=== PATIENT | male | born 1990 | race Caucasian/White ===

== ENCOUNTER 2017-09-07 21:48 | Inpatient (IN) | payer BC, SELFPAY ==
[2017-09-07 23:13] LABS: #Eosinphils 0.1 thou/uL (0.0-0.7); #Lymphocytes 1.6 thou/uL (1.20-3.40); #Monocytes 0.7 thou/uL (0.11-0.59); #Neutrophils 8.4 thou/uL (1.40-6.50); %Basophils 0.2 % (0.0-1.0); %Eosinophils 0.5 % (0.0-10.0); %Lymphocytes 14.9 % (21.0-51.0); %Monocytes 6.9 % (0.0-10.0); %Neutrophils 77.5 % (42.0-75.0); Hemoglobin 15.3 g/dL (12.0-16.0); Mean Corpuscular HGB CONC 34.6 g/dL (32.0-36.0); Mean Corpuscular Hemoglobin 31.4 pg (27.0-31.0); Mean Corpuscular Volume 90.8 fl (81.0-99.0); Mean Platelet Volume 7.1 fL (7.4-10.4); Platelet Count 157 thou/uL (130-400); RBC Distribution Width 11.6 % (11.5-14.5); Red Blood Cell (RBC) Count 4.87 mill/uL (4.20-5.40); White Blood Cell (WBC) Count 10.8 thou/uL (4.8-10.8)
[2017-09-07 23:20] LABS: PTT 29.8 SEC (22.9-36.1); Prothrombin Time 13.8 SEC (12.0-14.7)
--- NOTE | 2017-09-08 03:23 | HP ---
DATE OF ADMISSION: 09/08/2017 ADMITTING PHYSICIAN: Dr. Rell Starr. HISTORY OF PRESENT ILLNESS: A 26-year-old male who was unloading a horse from a trailer about 8:30 a.m. on 09/07/2017 when the horse kicked him in the abdomen. He reports that he was thrown about 10 feet backward. He had no LOC. He was able to get up on his own and ambulate to the house. He then had something to eat for breakfast. Over the course of the day, his abdomen became more tender. He presented to [facility] at approximately 3:[address] at that facility showed a contusion involving the right lower quadrant anterior abdominal wall as well as the right lower quadrant mesentery with mild hemoperitoneum. Report reads, there is no overt evidence of solid organ laceration or area of active arterial extravasation. He was then transferred to [facility] for higher level of care. He has been hemodynamically stable and neurovascularly intact. Pain is made worse by palpation. Pain was relieved with morphine at outside facility. He denies any nausea, vomiting, diarrhea, or constipation. He denies any other system injury. Pain is currently rated as 2-3/10. Trauma service has been consulted for admission and management. PAST MEDICAL HISTORY: None. SOCIAL HISTORY: Tobacco, 1 pack of cigarettes per day. ETOH 5 to 6 beers twice monthly. Drugs: None. FAMILY HISTORY: Noncontributory. ALLERGIES: No known drug allergies. CURRENT MEDICATIONS: None. LABORATORY DATA: WBC 10.8, hemoglobin 15.3, hematocrit 44.2, platelets 157. Sodium 137, potassium 4.2, creatinine 1.2, total bilirubin 0.6. REVIEW OF SYSTEMS: Except as documented above in HPI, review of systems is negative. PHYSICAL EXAMINATION: CONSTITUTIONAL/VITAL SIGNS: Blood pressure 110/83, pulse 92, respirations 16, pain 4/10, O2 sat 96% room air. GENERAL: A 26-year-old male, well-developed, well-nourished, no acute distress. HEENT: Atraumatic, normocephalic. PULMONARY: Respirations even unlabored. Bilateral breath sounds clear. CARDIOVASCULAR: Regular rate and rhythm. Heart sounds normal. ABDOMEN: Diffusely tender abdomen, greater in right lower quadrant. Mild guarding right lower quadrant. No rebound. Pelvis stable. EXTREMITIES: Moves all extremities well. Neurovascularly intact. NEUROLOGIC: GCS 15. A&O x3. Sensation intact. ASSESSMENT AND PLAN: 1. A 26-year-old male status post blunt abdominal trauma, kicked by a horse in abdomen. 2. Hemoperitoneum, no evidence of solid organ injury on CT scan. 3. Hemodynamically stable. PLAN: 1. Admit to IMCU. 2. Serial abdominal exams. 3. Serial H&H. Transfuse as indicated. 4. N.p.o. IV fluids. 5. IV analgesia. Patient was discussed with Dr. Starr, attending trauma surgeon. BRIAN
[2017-09-08] MEDS ORDERED: Morphine 4 MG/ML VIAL SLOW IVP PRN ×2 (04:31)
[2017-09-08] MEDS ORDERED: Ondansetron HCl/PF 4 MG/2 ML Vial IVP PRN (04:31)
[2017-09-08] MEDS ORDERED: Dextrose 5% in Water 1,000 ML IV PRN (04:31)
[2017-09-08] MEDS ORDERED: Sodium Chloride 0.9% 1,000 ML IV SCH (04:31)
[2017-09-08] MEDS ORDERED: Dextrose 50% Abboject 50 ML SYRINGE SLOW IVP PRN (04:31)
[2017-09-08 04:55] LABS: Hemoglobin 14.5 g/dL (14.0-18.0)
[2017-09-08] MEDS ORDERED: Metoclopramide HCl 10 MG/2 ML VIAL ONE (07:55)
[2017-09-08] MEDS ORDERED: Ketorolac Tromethamine 30 MG/ML VIAL ONE (07:55)
[2017-09-08] MEDS ORDERED: Acetaminophen 1,000 MG in Premix Bag 1 BAG IVPB SCH ×2 (08:00→15:00)
[2017-09-08] MEDS ORDERED: Ketorolac Tromethamine 30 MG/ML VIAL IVP SCH ×2 (08:00→15:00)
[2017-09-08] MEDS ORDERED: Metoclopramide HCl 10 MG/2 ML VIAL IVP SCH (08:00)
[2017-09-08] MEDS ORDERED: Famotidine/PF 20 mg/2ml Vial SLOW IVP SCH (09:00)
[2017-09-08] MEDS ORDERED: Famotidine/PF 20 mg/2ml Vial ONE (10:13)
--- NOTE | 2017-09-08 10:13 | CT ---
CT ABDOMEN AND PELVIS WITH IV AND ORAL CONTRASTS: History: Abdominal hemorrhage from recent injury. Kicked by a horse. Comparison: [facility] exam from 09-07-17. FINDINGS: The lung bases are clear. The liver, spleen, kidneys, adrenal glands, and pancreas are intact. Incomp lete rotation of the right kidney is apparent. Small amount of free fluid within the dependent portion of the pelvis is less than on the previous ex am. There is subtle stranding within the right lower quadrant fat, primarily surrounding the cecum. T his is similar in appearance to the previous study. No free air is evident. Appendix is within normal limits. Hyperdense material within the gallbladder lumen is likely related to the previous day's CT exam with IV contrast. IMPRESSION: Slight interval decrease in amount of free abdominal fluid associated with the right lower quadrant m esenteric injury. Findings are otherwise stable. POS: JUDITH
[2017-09-08] MEDS ORDERED: traMADol HCl 50 MG TAB PO PRN ×2 (10:26)
--- NOTE | 2017-09-08 11:19 | HP ---
HISTORY OF PRESENT ILLNESS: Feliciano Cortés is a 26-year-old male from [place] in the [place] area for an endurance horse ride event. He was kicked in the right abdomen by his horse. This happ ened about 2:00 yesterday afternoon and about 2:00 this morning, he presented to the [facility], hemodynamically stable with increased pain. CAT scan of abdomen and pelvis obtained reveal ing some bloody fluid in his abdominal cavity, suggesting of mesenteric injury. Patient was transfer red to [facility] and monitored. His hemoglobin has remained stable at 14.5 this morning 04 00 and white count normal. His pain is not worsen. His vital signs remain stable with normal heart rate and respiratory rate. ALLERGIES: None. TOBACCO: One-half to one pack per day. ALCOHOL: Occasionally. MEDICATIONS: None routinely. PAST SURGICAL HISTORY: Noncontributory. PAST MEDICAL HISTORY: Noncontributory. PAST MEDICAL HISTORY: VITAL SIGNS: 102/60, 92, 16, 98.5 degrees. HEAD, EARS, EYES, NOSE AND THROAT: Unremarkable. LUNGS: Clear to auscultation. CARDIAC: Regular rate and rhythm without murmur or gallop. ABDOMEN: Nondistended. He has tenderness in his right lower quadrant with guarding at the area wher e there is a contusion by CAT scan. The remainder of his abdomen left upper quadrant, right upper qu adrant, left lower quadrant have tenderness, but not rigidity. EXTREMITIES: Unremarkable. ASSESSMENT AND PLAN: Horse trauma, contusion, abdominal wall. There was some free intraabdominal bl ood, which may be consistent with hematoma. Hemodynamically, he remained stable and his pain is not worsening and I do not think he has a bowel injury, I think he can be observed. I would, however, re peat his CAT scan of the abdomen and pelvis with p.o. and IV contrast this morning to get a better lo ok at this. He will need to be monitored for 24-48 hours with repeat CBC in the morning.
[2017-09-08 14:05] VITALS: BMI 23.6
[2017-09-08] MEDS: Ibuprofen 800 MG TAB PO SCH ×2 (14:11→18:13)
[2017-09-08] MEDS: Acetaminophen 500 MG TAB PO SCH ×3 (14:11→23:09)
[2017-09-08] MEDS ORDERED: FLU VACC QS2017-18 36 mo. & older 0.5 ML SYRINGE IM ONE (16:45)
[2017-09-09] MEDS: Acetaminophen 500 MG TAB PO SCH ×2 (03:40→10:36)
[2017-09-09] MEDS: Ibuprofen 800 MG TAB PO SCH ×2 (03:40→10:36)
[2017-09-09 04:58] LABS: #Eosinphils 0.2 thou/uL (0.0-0.7); #Lymphocytes 1.7 thou/uL (1.20-3.40); #Monocytes 0.5 thou/uL (0.11-0.59); #Neutrophils 2.6 thou/uL (1.40-6.50); %Basophils 0.7 % (0.0-1.0); %Eosinophils 3.8 % (0.0-10.0); %Lymphocytes 33.3 % (21.0-51.0); %Monocytes 10.7 % (0.0-10.0); %Neutrophils 51.4 % (42.0-75.0); Hemoglobin 12.8 g/dL (14.0-18.0); Mean Corpuscular HGB CONC 34.2 g/dL (32.0-36.0); Mean Corpuscular Hemoglobin 31.6 pg (27.0-31.0); Mean Corpuscular Volume 92.3 fl (80.0-94.0); Mean Platelet Volume 7.2 fL (7.4-10.4); Platelet Count 136 thou/uL (130-400); RBC Distribution Width 11.3 % (11.5-14.5); Red Blood Cell (RBC) Count 4.05 mill/uL (4.70-6.10); White Blood Cell (WBC) Count 5.1 thou/uL (4.8-10.8)
[2017-09-09 05:09] LABS: Anion Gap 9 mmol/L (10-20); BUN (Urea Nitrogen) 12 mg/dL (8.9-20.6); Calc. Creatinine Clearance 107 mL/min (70-130); Carbon Dioxide 29 mmol/L (22-29); Chloride 105 mmol/L (98-107); Estimated GFR-MDRD 84; Glucose 100 mg/dL (70-105); Sodium 139 mmol/L (136-145)
[2017-09-09 08:52] VITALS: BP 110/68; TEMP 97.8
--- NOTE | 2017-09-09 14:33 | DIS ---
DATE OF ADMISSION: 09/08/2017 DATE OF DISCHARGE: 09/09/2017 ADMITTING PHYSICIAN: Dr. eRll Starr. CHIEF COMPLAINT: Kicked in abdomen by a horse, abdominal pain. HOSPITAL DIAGNOSES: 1. Status post kick by a horse. 2. Abdominal wall contusion. 3. Hemoperitoneum. PROCEDURES: None. DISCHARGE CONDITION: Good. Discharged to home. DISCHARGE INSTRUCTIONS: The patient may be discharged home. Follow up with Dr. Arnold in 1-2 weeks as needed or primary care physician. DISCHARGE MEDICATIONS: Tylenol and/or ibuprofen [id number] as directed. ACTIVITY: As tolerated. DIET: Regular. BRIEF SUMMARY OF HOSPITALIZATION: This is a 26-year-old male, who was visiting from [place]. He was at an event in [place], [place] where he was unloading a horse from a trailer when the horse kicked him in the right lower quadrant of the abdomen. He was thrown backwards approximately 10 feet. Later that day, he developed increasing abdominal pain and went to the hospital in [place] where a CT scan identified some free fluid in the pelvis. He was then transferred to [place] for higher level of care. He was evaluated in the ED and admitted to the [facility] for serial abdominal exams and serial laboratory studies. He was evaluated by Dr. Starr and a repeat CT scan was done. Repeat CT scan showed decrease in amount of free abdominal fluid. He was transferred to the regular floor and started on a regular diet. He had normal bowel function. He remained afebrile and hemodynamically stable. Abdominal pain improved significantly. He was able to ambulate without assistance. On hospital day #1, he was cleared for discharge home. He was given discharge instructions followup information and strict return precautions. The patient was reviewed with Dr. Arnold, attending trauma surgeon, who agrees with the assessment and discharge plan. BRIAN
== END 2017-09-09 11:20 | disposition home or self-care (01) | DRG 605 ==
LOC: ERS 21:48 → EDSEX 09-08 00:17 → ERHOLD 09-08 00:17 → SURG B 09-08 13:44
PROVIDERS: ADMIT Specialist; ATTEND Specialist
DX: S30.1XXA Contusion of abdominal wall, initial encounter (principal); F17.210 Nicotine dependence, cigarettes, uncomplicated; W55.12XA Struck by horse, initial encounter
CPT/HCPCS: 36415; 74177; 80048; 85014; 85018; 85025; 85610; 85730; 90471; 90682; 94760; 96361; 96365; 96367; 96375; G0008; G0390; J0131; J1885; J2765; Q2036; S0028